=== PATIENT | male | born 1940 | race Caucasian/White ===

== ENCOUNTER → 2024-05-04 13:21 | Outpatient (CLI) | payer OTHER, SELFPAY ==
--- NOTE | 2024-05-04 13:26 | DI.ECHO.S_ITS ---
[facility] +---------+ [facility] : : [address] : : [place] : : [id number] : : Phone: [phone] Echocardiogram Report + + :Name: LIDIA RODRIGUEZ Study Date: 05/04/2024 Height: 73 in : :Hospital ReadingLocation: Weight: 195 lb : : Gender: Male BSA: 2.1 m2 : :: 1940 Age: 84 yrs BP: 110/64 mmHg: :Reason For Study: HEART DISEASE : :Ordering Physician: VAMSI, : :MANUELA Performed By: Nimco Brown : :Referring: MANUELA AGUSTIN : + + Interpretation Summary Normal left ventricle size with ejection fraction 40-45%. Prior anteroapical infarct. Diastolic parameters suggest a pseudonormalization pattern, consistent with probable elevated filling pressures. The left atrium is severely dilated. The right atrium is mildly dilated. Moderate to severe aortic stenosis. Mild aortic regurgitation. Mild mitral annular calcification. Mild mitral regurgitation. Procedure: A two-dimensional transthoracic echocardiogram with color flow and Doppler was performed. The study quality was technically adequate. There is no prior echocardiogram noted for this patient. The heart rate ranged between 59-72 bpm during the study. Left Ventricle: The left ventricle is normal in size and wall thickness. The ejection fraction is estimated to be 40-45%. There is mid anterior wall akinesis. There is apical anterior wall akinesis. There is apical akinesis. There is mid anteroseptal wall severe hypokinesis. There is basal anteroseptal wall severe hypokinesis. Diastolic parameters suggest a pseudonormalization pattern, consistent with probable elevated filling pressures. Right Ventricle: The right ventricle is normal in size and function. Atria: The left atrium is severely dilated. The right atrium is mildly dilated. There is no Doppler evidence for an interatrial shunt. Mitral Valve: The mitral valve leaflets appear moderately thickened, but open well. There is mild mitral annular calcification. There is mild mitral regurgitation. Aortic Valve: The aortic valve is not well visualized. The aortic valve is severely calcified. There is moderate to severe aortic stenosis. The peak aortic velocity is 2.9 m/sec. The aortic valve mean gradient is 21 mmHg. There is mild aortic regurgitation. Tricuspid Valve: The tricuspid valve is not well visualized, but is grossly normal. There is mild tricuspid regurgitation. The right ventricular systolic pressure is estimated to be at least 32 mmHg based on an estimated right atrial pressure of 3 mm Hg. Pulmonic Valve: The pulmonic valve is not well visualized. There is no pulmonic valvular regurgitation. Great Vessels: The aortic root is normal size. The ascending aorta could not be visualized. The IVC is of normal diameter and collapses greater than 50% with a sniff. This suggests a low right atrial pressure of 3 mm Hg. Pericardium/ Pleura There is no pericardial effusion. There is no pleural effusion. MMode/2D Measurements & Calculations LVIDd: 5.3 cm LVOT diam: 2.2 cm LVIDs: 4.6 cm Ao root diam: 3.5 cm FS: 12.7 % Ao Arch Diam (Prox Trans): 2.7 cm IVSd: 0.63 cm LVPWd: 0.74 cm LV esquivel. diameter/BSA (cm/m^2): 2.5 LV sys. diameter/BSA (cm/m^2): 2.2 LA A2 area: 31.1 cm2 RA long axis: 5.5 cm LA A4 area: 29.8 cm2 RA area: 18.9 cm2 LA length (vol): 6.9 cm RA vol: 55.5 ml LA vol: 113.8 ml RA : 26.1 ml/m2 LA vol index: 53.5 ml/m2 IVC diam: 2.0 cm RVD1 (basal): 3.7 cm RVD2 (mid): 3.6 cm TAPSE: 1.9 cm Doppler Measurements & Calculations Ao V2 max: 291.3 cm/sec LVOT Max Elías: 97.9 cm/sec Ao V2 mean: 216.5 cm/sec LV V1 max P.8 mmHg Ao max P.4 mmHg LV V1 VTI: 21.7 cm Ao mean P.6 mmHg ISAÍAS(I,D): 1.2 cm2 Ao V2 VTI: 69.5 cm ISAÍAS(V,D): 1.3 cm2 sev ratio: 0.31 ISAÍAS indexed to BSA (cm^2/m^2): 0.57 MV E max elías: 128.5 cm/sec TR max elías: 269.7 cm/sec MV A max elías: 105.1 cm/sec TR max P.1 mmHg MV E/A: 1.2 Med Peak E' Elías: 4.0 cm/sec E/E' med: 32.3 Lat Peak E' Elías: 9.3 cm/sec E/E' lat: 13.8 E/e' average: 23.1 MV dec time: 0.26 sec SV(LVOT): 83.9 ml Electronically signed by: Gila rivera Reading Physician:05/04/2024 06:08 PM
== END ==
PROVIDERS: Referring Provider Physician Assistant; Visit Provider Physician Assistant
DX: I08.3 Combined rheumatic disorders of mitral, aortic and tricuspid valves (principal); I11.0 Hypertensive heart disease with heart failure
CPT/HCPCS: 93306